=== PATIENT | female | born 1960 | race Hispanic/Latino ===

== ENCOUNTER 2017-04-04 17:30 | Emergency (ER) | payer SELFPAY ==
[~2017-04-04 17:30] MED LIST: ISOVUE-370 76%-LOCM 1 ML ONE
[2017-04-04 18:17] LABS: #Eosinphils 0.4 thou/uL (0.0-0.7); #Lymphocytes 2.7 thou/uL (1.20-3.40); #Monocytes 0.7 thou/uL (0.11-0.59); #Neutrophils 8.3 thou/uL (1.40-6.50); %Basophils 0.2 % (0.0-1.0); %Lymphocytes 22.6 % (21.0-51.0); %Monocytes 5.6 % (0.0-10.0); Hematocrit 42.4 % (36.0-47.0); Mean Platelet Volume 7.8 fL (7.4-10.4); Red Blood Cell (RBC) Count 4.62 mill/uL (4.20-5.40)
[2017-04-04 18:46] LABS: ALT (SGPT) 44 U/L (8-55); AST (SGOT) 90 U/L (5-34); Alkaline Phosphatase 99 U/L (40-150); Anion Gap 16 mmol/L (10-20); BUN (Urea Nitrogen) 11 mg/dL (9.8-20.1); Bilirubin, Total 0.3 mg/dL (0.2-1.2); Calc. Creatinine Clearance 0 mL/min (70-130); Calcium 8.9 mg/dL (7.8-10.44); Carbon Dioxide 26 mmol/L (22-29); Chloride 100 mmol/L (98-107); Estimated GFR-MDRD 71; Globulin 5.3 g/dL (2.4-3.5); Lipase 23 U/L (8-78); Protein, Total 8.9 g/dL (6.0-8.3)
--- NOTE | 2017-04-04 18:58 | CT ---
CT ABDOMEN AND PELVIS WITH CONTRAST: 04/04/17 COMPARISON: 08/23/14. HISTORY: Left sided abdominal pain, greater in the upper abdomen compared to the lower abdomen. Intermittent nausea. TECHNIQUE: Multiple contiguous axial images were obtained in a CT of the abdomen and pelvis with contrast. Digna nal reformats were performed. FINDINGS: The liver, gallbladder, adrenal glands, spleen, and pancreas are unremarkable. There are hypodensiti es in the kidneys measuring up to 2.5 cm in size which represents cysts. No free air, free fluid, or stranding changes are seen in the abdomen or pelvis. The reproductive organs are unremarkable. The large and small bowel are unremarkable. The appendix i s normal. No abdominal or pelvic lymphadenopathy are seen. Degenerative changes are seen in the spine. The visualized inferior thorax and abdominal wall soft t issues are unremarkable. IMPRESSION: 1. No evidence of acute intra-abdominal/pelvic abnormality. 2. Renal cyst. POS: EAA
[2017-04-04] MEDS ORDERED: Magnesium Citrate 300 ML BOT ONE (19:20)
== END 2017-04-04 19:27 | disposition home or self-care (01) ==
LOC: ERS 17:30
DX: K59.00 Constipation, unspecified (principal); I10 Essential (primary) hypertension
CPT/HCPCS: 74177; 80053; 83690; 85025; 96360

== ENCOUNTER 2017-04-07 13:58 | Emergency (ER) | payer SELFPAY ==
--- NOTE | 2017-04-07 17:12 | RAD ---
RADIOGRAPH CHEST 1 VIEW RADIOGRAPH ABDOMEN 2 VIEWS: HISTORY: 56-year-old female with generalized abdominal pain and constipation. FINDINGS: There are no air space densities or pulmonary edema. The lateral costophrenic angles are sharp. Ther e is no cardiomegaly. There is no evidence of pneumothorax or pneumoperitoneum. There is no evidence of dilated small bowel loops, differential air/fluid levels, or organomegaly. IMPRESSION: 1. No acute cardiopulmonary findings. 2. No evidence of bowel obstruction. genet [] POS: ANIL
== END 2017-04-07 18:38 | disposition home or self-care (01) ==
LOC: ERS 13:58
DX: K64.4 Residual hemorrhoidal skin tags (principal); K59.00 Constipation, unspecified; I10 Essential (primary) hypertension; Z79.899 Other long term (current) drug therapy
CPT/HCPCS: 74022

== ENCOUNTER 2019-09-20 20:51 | Observation (INO) | payer SELFPAY ==
[~2019-09-20 20:51] MED LIST changes: -ISOVUE-370 76%-LOCM 1 ML ONE; +Iopamidol 370 76% 100 ML VIAL ONE
[2019-09-20 21:25] LABS: #Eosinphils 0.2 thou/uL (0.0-0.7); #Monocytes 0.5 thou/uL (0.11-0.59); #Neutrophils 5.9 thou/uL (1.40-6.50); %Basophils 0.1 % (0.0-1.0); %Lymphocytes 31.3 % (21.0-51.0); %Monocytes 4.7 % (0.0-10.0); %Neutrophils 61.9 % (42.0-75.0); Hemoglobin 13.9 g/dL (12.0-16.0); Mean Corpuscular Hemoglobin 30.1 pg (27.0-31.0); Mean Corpuscular Volume 88.5 fL (78.0-98.0); Mean Platelet Volume 8.3 fL (7.4-10.4); Platelet Count 271 thou/uL (130-400); RBC Distribution Width 13.1 % (11.5-14.5); Red Blood Cell (RBC) Count 4.62 mill/uL (4.20-5.40); White Blood Cell (WBC) Count 9.6 thou/uL (4.8-10.8)
[2019-09-20 21:32] LABS: PTT 29.7 SEC (22.9-36.1); Prothrombin Time 13.3 SEC (12.0-14.7)
[2019-09-20 21:37] LABS: BHCG - Serum Negative (NEGATIVE); Pregs Control Background? CLEAR/WHITE (CLR/WHITE); Pregs Control Bar Appear? YES (CONTROL BAR)
[2019-09-20] MEDS ORDERED: Ondansetron PF 4 MG/2 ML Vial ONE (21:45)
[2019-09-20] MEDS ORDERED: Morphine 4 MG/ML VIAL ONE ×2 (21:45→23:47)
[2019-09-20 21:54] LABS: ALT (SGPT) 34 U/L (8-55); AST (SGOT) 36 U/L (5-34); Albumin 3.9 g/dL (3.5-5.0); Alkaline Phosphatase 76 U/L (40-110); Anion Gap 15 mmol/L (10-20); BUN (Urea Nitrogen) 8 mg/dL (9.8-20.1); Bilirubin, Total 0.4 mg/dL (0.2-1.2); CK (CPK) 86 U/L (29-168); Calc. Creatinine Clearance 0 mL/min (70-130); Calcium 9.6 mg/dL (7.8-10.44); Carbon Dioxide 27 mmol/L (22-29); Chloride 99 mmol/L (98-107); Estimated GFR-MDRD 50; Globulin 4.4 g/dL (2.4-3.5); Glucose 271 mg/dL (70-105); Potassium 4.5 mmol/L (3.5-5.1); Protein, Total 8.3 g/dL (6.0-8.3); Sodium 136 mmol/L (136-145)
--- NOTE | 2019-09-20 21:59 | CT ---
CT angiogram head CT angiogram neck 09/20/2019 COMPARISON: None HISTORY: Shortness of breath and headache TECHNIQUE: Axial CT imaging at 5 mm intervals from vertex through skull base without contrast. Subseq uently, axial CT imaging at 1.25 mm intervals through the head and neck with IV contrast using CT angiogram protocol. Coronal and sagittal 3-D reformatted imaging obtained. FINDINGS: Noncontrast enhanced head CT demonstrates no intracranial hemorrhage, midline shift, mass e ffect, or ventricular enlargement. The visualized paranasal sinuses and mastoid air cells are well-aerated. No displaced calvarial fract ure. Imaged lung apices appear grossly unremarkable. The thyroid gland is diffusely prominent. The parotid glands, submandibular glands, tonsillar pillars , epiglottis, preepiglottic fat, hyoid bone, thyroid cartilage, and cricoid cartilage demonstrate no focal abnormality. No enlarged lymph nodes are appreciated within the neck. No hemodynamically significant stenosis noted at the origin of the right subclavian artery, right com mon carotid artery, left common carotid artery, left subclavian artery, left vertebral artery, or right vertebral artery. The right vertebral artery is hypoplastic and not well assessed proximally se condary to body habitus, size, and adjacent venous contrast. Bilateral vertebral arteries are patent. The left vertebral artery is dominant and unremarkable. On the basis of NASCET criteria, no hemodynamically significant stenosis is appreciated involving the common carotid artery or the internal carotid artery on either side. The internal carotid arteries are tortuous bilaterally. The basilar artery is patent. Branches of the basilar artery appear grossly unremarkable. No saccular aneurysm, high-grade stenosis, or vascular occlusion is seen involving the posterior circulation. The ICA bifurcation appears unremarkable bilaterally. The M1 segment, MCA bifurcation, and distal MCA branches appear grossly unremarkable bilaterally. The A1 segment and distal LORI branches appear grossly unremarkable. Review of the osseous structures demonstrates multilevel thoracic spine degenerative change. There is no acute osseous abnormality evident. IMPRESSION: No acute findings. Please see above discussion.
[2019-09-20 22:00] LABS: Bilirubin Negative (Negative); Blood, Urine Trace (Negative); Clarity Clear (Clear); Glucose, Urine (Dipstick) >=1000 mg/dL (Negative); Leukocyte Negative (Negative); Nitrite Negative (Negative); Protein, Urine (Dipstick) Negative (Neg-Trace); Urobilinogen 0.2 mg/dL (Less than 2)
[2019-09-20 22:04] LABS: Bacteria/HPF None Seen HPF (None Seen); RBC/HPF 0-3 HPF (0-3); Squamous Epithelial 0-3 HPF (0-3); WBC/HPF 0-3 HPF (0-3)
--- NOTE | 2019-09-20 22:05 | RAD ---
Portable frontal chest radiograph: 09/20/2019 COMPARISON: 09/10/2015 HISTORY: Headache and jaw pain FINDINGS: Lungs are clear. Heart and mediastinal contours appear within normal limits. IMPRESSION: No acute findings.
[2019-09-20] MEDS ORDERED: Nitroglycerin 2% Ointment 1 INCH/1 GM Packet ONE (22:23)
[2019-09-20] MEDS ORDERED: diphenhydrAMINE 50 MG/ML VIAL ONE (22:23)
[2019-09-20] MEDS ORDERED: Metoclopramide HCl 10 MG/2 ML VIAL ONE (22:23)
[2019-09-20] MEDS ORDERED: Aspirin Chewable 81 MG TAB ONE (22:23)
[2019-09-20] MEDS ORDERED: Acetaminophen 325 MG TAB PO PRN (22:58)
[2019-09-20] MEDS ORDERED: Ondansetron ODT 4 MG TAB PO PRN (22:58)
[2019-09-20] MEDS ORDERED: Dextrose 50% Abboject 50 ML SYRINGE SLOW IVP PRN (23:04)
[2019-09-20] MEDS ORDERED: Dextrose 5% in Water 1,000 ML IV PRN (23:04)
[2019-09-21] MEDS: Sodium Chloride 0.9% 1,000 ML IV SCH ×3 (01:29→22:32)
[2019-09-21 02:03] LABS: Troponin I Less than 0.010 ng/mL (< 0.028)
[2019-09-21] MEDS ORDERED: Ondansetron PF 4 MG/2 ML Vial IVP PRN (02:17)
[2019-09-21 03:00] VITALS: BMI 42.2
--- NOTE | 2019-09-21 03:57 | HP ---
CHIEF COMPLAINT: Headache and slurred speech. HISTORY OF PRESENT ILLNESS: Ms. Santana is a 58-year-old female with past medical historyof diabetes mellitus type 2, hypertension, hyperlipidemia and arthritis who presents to the emergency room with a headache that started 2 hours prior to arrival. The patient's family also noticed the patient having some difficulty/slurring of speech. Also the patient complained of neck pain and jaw pain. Initial workup in the emergency room including CT of the brain, CTA of the brain and neck, no acute finding. Initial troponin unremarkable. EKG showed nonspecific ST and T-wave changes. Given patient's presentation and the risk factors, the patient is being admitted to hospital for further management. PAST MEDICAL HISTORY: As mentioned above in the history of present illness. PAST SURGICAL HISTORY: None. FAMILY HISTORY: Reviewed and noncontributory. SOCIAL HISTORY: No history of smoking, alcohol drinking, or drug abuse. ALLERGIES: NO KNOWN ALLERGIES. HOME MEDICATIONS: Please see home medication reconciliation form for updated medications. REVIEW OF SYSTEMS: Review of 14 systems negative except what is mentioned in the history of present illness. PHYSICAL EXAMINATION: GENERAL: The patient is awake, alert, in mild distress. VITAL SIGNS: Blood pressure 151/72, pulse is 78, respiratory rate is 15, pulse oximetry is 100% on room air, temperature 97.9. HEAD AND NECK: Normocephalic, atraumatic. Neck is supple. No JVD. CHEST: Fair bilateral air entry. HEART: S1, S2. Regular. ABDOMEN: Soft, nontender. Bowel sounds present. NEUROLOGIC: Awake, alert and oriented x3. No focal deficits. PSYCH: Normal mood. EXTREMITIES: No clubbing or cyanosis. GENITOURINARY: No suprapubic tenderness. No flank tenderness. LABORATORY DATA: As mentioned above in history of present illness. IMAGING STUDIES: CTA of the brain and neck, as mentioned above in the history of present illness. ASSESSMENT: 1. Headache. 2. Slurred speech. 3. Hypertension. 4. Diabetes mellitus. 5. Hyperlipidemia. PLAN: 1. Admit. 2. Tele monitor. 3. Frequent neuro checks. 4. MRI of the brain. 5. Aspirin. 6. Serial troponins. 7. Reconcile home medications. 8. DVT prophylaxis as appropriate. 9. Expected length of stay at least 1 midnight if the patient is stable and further workup is negative. Job ID: [id number]
[2019-09-21 05:21] LABS: Cardiac Risk 5.5 (Less than 4.5)
[2019-09-21 05:24] LABS: Troponin I Less than 0.010 ng/mL (< 0.028)
[2019-09-21] MEDS: HumaLOG 300 UNITS/3 ML VIAL SC PRN (06:48)
--- NOTE | 2019-09-21 08:35 | MRI ---
MRI brain noncontrast HISTORY: TIA. FINDINGS: There is no evidence of acute intracranial hemorrhage or infarct. The ventricles appear nor mal in size, shape and position. There is no mass effect or shift of midline structures. Visualized paranasal sinuses remain well aerated. Sella is slightly expanded with CSF. Pituitary gland not well visualized. Appearance of empty sella. IMPRESSION: No acute intracranial abnormalities are demonstrated.
[2019-09-21] MEDS: Famotidine 20 MG TAB PO SCH ×2 (09:00→20:46)
[2019-09-21] MEDS: Aspirin 325 mg Enteric Coated Tablet PO SCH (09:00)
--- NOTE | 2019-09-21 17:31 | PDOC.HOSPP ---
- Subjective Encounter Date: 09/21/19 Encounter Time: 12:30 Subjective: pt up in bed feels well, she has no symptoms. - Objective Vital Signs & Weight: Vital Signs (12 hours) Temp Pulse Resp BP Pulse Ox 09/21/19 15:31 98.2 F 68 17 125/57 L 92 L 09/21/19 12:00 98.8 F 72 16 132/60 94 L 09/21/19 07:52 98.1 F 64 16 115/54 L 92 L Weight Weight 231 lb I&O: 09/20/19 09/21/19 09/22/19 06:59 06:59 06:59 Intake Total 550 480 Output Total 600 Balance -50 480 Result Diagrams: 09/20/19 21:08 09/20/19 21:08 Additional Labs: Accuchecks 09/21/19 09/21/19 09/21/19 17:25 10:45 05:43 POC Glucose 230 H 277 H 163 H 09/20/19 21:10 POC Glucose 271 H Hospitalist ROS - Review of Systems Respiratory: denies: cough, dry, shortness of breath, hemoptysis, SOB with excertion, pleuritic pain, sputum, wheezing, other Cardiovascular: denies: chest pain, palpitations, orthopnea, paroxysmal noc. dyspnea, edema, light headedness, other Gastrointestinal: denies: nausea, vomiting, abdominal pain, diarrhea, constipation, melena, hematochezia, other - Medication Medications: Active Medications Generic Name Dose Route Start Last Admin Trade Name Freq PRN Reason Stop Dose Admin Aspirin 325 mg 09/21/19 09:00 09/21/19 09:00 Ecotrin PO 325 mg DAILY GAUDENCIO Administration Famotidine 20 mg 09/21/19 09:00 09/21/19 09:00 Pepcid PO 20 mg BID GAUDENCIO Administration Sodium Chloride 1,000 mls @ 50 mls/hr 09/20/19 23:00 09/21/19 01:29 Normal Saline 0.9% IV 1,000 mls .Q20H GAUDENCIO Administration Insulin Human Lispro 0 units 09/20/19 23:04 09/21/19 06:48 Humalog SC 2 unit .MILD SLIDING SCALE PRN Administration Mild Correctional Scale Ondansetron HCl 4 mg 09/20/19 22:58 03/16/20 02:13 Zofran Odt PO 4 mg Q6H PRN Administration Nausea/Vomiting - Exam Neck: negative: supple, symmetric, no JVD, no thyromegaly, no lymphadenopathy, no carotid bruit, JVD Heart: negative: RRR, no murmur, no gallops, no rubs, normal peripheral pulses, irregular, diminshed peripheral pulses, murmur present, II/IV, III/IV Respiratory: negative: CTAB, no wheezes, no rales, no ronchi, normal chest expansion, no tachypnea, normal percussion, rales, rhonchi, tachypneic, wheezes Gastrointestinal: negative: soft, non-tender, non-distended, normal bowel sounds , no palpable masses, no hepatomegaly, no splenomegaly, no bruit, no guarding, no rigidity, tender to palpation, distended, diminished bowl sounds, voluntary guarding Hosp A/P (1) Slurred speech Code(s): R47.81 - SLURRED SPEECH Status: Acute (2) Obesity Code(s): E66.9 - OBESITY, UNSPECIFIED Status: Acute - Plan will continue statin and asa. echo ordered pending. MRI brain is negative.
[2019-09-21] MEDS ORDERED: Atorvastatin Calcium 40 MG TAB PO SCH (21:00)
[2019-09-22] MEDS: Famotidine 20 MG TAB PO SCH (09:27)
[2019-09-22] MEDS: Aspirin 325 mg Enteric Coated Tablet PO SCH (09:27)
[2019-09-22] MEDS: HumaLOG 300 UNITS/3 ML VIAL SC PRN ×2 (12:55→17:40)
[2019-09-22 15:26] VITALS: BP 135/63; TEMP 98.7
--- NOTE | 2019-09-22 15:27 | CON ---
DATE OF CONSULTATION: 09/22/2019 CONSULTING PHYSICIAN: Hospitalist Service. IMPRESSION: Probable migraine given the lack of findings on MRI. PLAN: Given the patient's risk factors, start aspirin 325 mg per day and address her hyperlipidemia with Lipitor 40 mg per day. HISTORY OF PRESENT ILLNESS: Ms. Santana is a 58-year-old woman with a past history of diabetes, hypertension, and hyperlipidemia, who presented to the emergency room with complaints of a headache and some tingling. She was subsequently admitted for further evaluation. Her MRI of the brain was negative for any evidence of an ischemic event, given that her symptoms lasted over 4 hours. She has not had any further events since admission. Her CT angiogram was without any evidence of stenosis or EKG showed some nonspecific ST and T-wave changes. She denies a history of migraine headaches. PAST MEDICAL HISTORY: As listed above. ALLERGIES: NONE REPORTED. SOCIAL HISTORY: No tobacco or alcohol. FAMILY HISTORY: Noncontributory. REVIEW OF SYSTEMS: Ten-system review of systems is otherwise negative. PHYSICAL EXAMINATION: GENERAL: She is an overweight, middle-aged woman, in no acute distress. VITAL SIGNS: Blood pressure 118/56, pulse 69, respirations 20, and she is afebrile. HEENT: Unremarkable. NECK: Supple. EXTREMITIES: No cyanosis. NEUROLOGIC: She is alert and cooperative. Her speech is fluent and clear. She has no focal deficits. SUMMARY: This is a middle-aged woman with vascular risk factors, who presented with a headache and some tingling, more than likely this was a complex migraine. I agree with aspirin in addressing her hyperlipidemia. She appears stable for discharge. Job ID: [id number]
--- NOTE | 2019-09-22 20:49 | DIS ---
DATE OF ADMISSION: 09/20/2019 DATE OF DISCHARGE: 09/22/2019 DISCHARGE DIAGNOSES: 1. Slurred speech. 2. Obesity. 3. Diabetes. 4. Empty sella. HOSPITAL COURSE: The patient is a 58-year-old female who initially presented to the hospital with complaints of headache and slurred speech. She underwent a stroke workup. She did have a CTA which was negative. She also had an MRI brain and an echocardiogram. The CTA did not show any abnormalities. The CTA was negative. She also had an MRI brain which was normal also, the only thing it indicated that she a sella turcica that was empty and it stated that it was expanded with the CSF. I have asked the patient to follow up with her primary care in regard to this. She had an echocardiogram which indicated an EF of 60% to 65%, with no significant abnormalities that was noted. Just mild mitral annual calcification and just mild to moderate left atrium dilation. At this time, she was also seen by Neurology and recommendation was to continue with aspirin and antihyperlipids. Also recommended that most likely this was a complex migraine. The patient then was discharged. HOME MEDICATIONS: Will be: 1. Aspirin 81 mg daily. 2. Atorvastatin 40 mg daily. 3. Metformin 2 tablets b.i.d. PHYSICAL EXAMINATION: VITAL SIGNS: Temperature 98.7, pulse 63, respirations 19, 95% on room air, blood pressure 135/63. GENERAL: She is awake, alert, and oriented x3. Does not appear in distress. CV: S1 and S2 present. No murmurs, rubs, or gallops. Again, she will be discharged home. She will follow up with her primary. Job ID: [id number]
--- NOTE | 2019-09-26 10:10 | EKG ---
Test Reason : Blood Pressure : / mmHG Vent. Rate : 081 BPM Atrial Rate : 081 BPM P-R Int : 192 ms QRS Dur : 092 ms QT Int : 342 ms P-R-T Axes : 018 005 -39 degrees QTc Int : 397 ms Normal sinus rhythm Abnormal ECG Inferior lateral ST wave depression with lead aVR elevated Confirmed by TASHI GAVIN ([id number]), book editor GIO POLANCO ([id number]) on 09/26/2019 10:10:08 AM Referred By: Confirmed By:TASHI GAVIN
--- NOTE | 2019-09-26 10:10 | EKG ---
Test Reason : Blood Pressure : / mmHG Vent. Rate : 077 BPM Atrial Rate : 077 BPM P-R Int : 188 ms QRS Dur : 082 ms QT Int : 330 ms P-R-T Axes : 049 -10 -28 degrees QTc Int : 373 ms Normal sinus rhythm Left ventricular hypertrophy with repolarization abnormality Abnormal ECG Confirmed by TASHI GAVIN ([id number]), video editor GIO POLANCO ([id number]) on 09/26/2019 10:10:19 AM Referred By: Confirmed By:TASHI GAVIN
--- NOTE | 2019-09-26 10:11 | EKG ---
Test Reason : EMERGENCY EXAM Blood Pressure : / mmHG Vent. Rate : 068 BPM Atrial Rate : 068 BPM P-R Int : 196 ms QRS Dur : 092 ms QT Int : 320 ms P-R-T Axes : 067 -02 -46 degrees QTc Int : 340 ms Normal sinus rhythm Abnormal ECG Confirmed by TASHI GAVIN ([id number]), mapping editor GIO POLANCO ([id number]) on 09/26/2019 10:11:09 AM Referred By: Confirmed By:TASHI GAVIN
== END 2019-09-22 17:54 | disposition home or self-care (01) ==
LOC: ERS 20:51 → 2SE 22:42
PROVIDERS: ADMIT Internal Medicine; ATTEND Internal Medicine
DX: R51 Headache (principal); R47.81 Slurred speech; I10 Essential (primary) hypertension; E11.9 Type 2 diabetes mellitus without complications; E78.5 Hyperlipidemia, unspecified; M19.90 Unspecified osteoarthritis, unspecified site; E23.6 Other disorders of pituitary gland; E66.9 Obesity, unspecified; Z68.41 Body mass index [BMI] 40.0-44.9, adult; Z79.84 Long term (current) use of oral hypoglycemic drugs
CPT/HCPCS: 36415; 36416; 51701; 70496; 70498; 70551; 71045; 80053; 80061; 81003; 81015; 82550; 83880; 84484; 84703; 85025; 85610; 85730; 90471; 90732; 93005; 93306; 96361; 96365; 96375; 96376; G0009; G0378; J1200; J2270; J2405; J2765; Q0162; Q9967